=== PATIENT | female | born 1970 | race Caucasian/White ===

== ENCOUNTER 2017-08-15 19:05 | Emergency (ER) | payer OTHER ==
[2017-08-15 19:18] VITALS: RESP 20; TEMP 97.5; O2SAT 99
[2017-08-15] MEDS ORDERED: CYCLOBENZAPRINE 10 MG TAB PO ONE (21:13)
[2017-08-15] MEDS ORDERED: CYCLOBENZAPRINE 10 MG TAB ONE (21:15)
[2017-08-15 21:37] VITALS: BP 135/84; PULSE 84
== END 2017-08-15 21:20 | disposition home or self-care (01) | DRG 552 ==
LOC: ED 19:05
DX: S33.5XXA Sprain of ligaments of lumbar spine, initial encounter (principal); S13.4XXA Sprain of ligaments of cervical spine, initial encounter
CPT/HCPCS: 72040; 72120; 73030; 99282; 99283; A9270-GY

== ENCOUNTER 2018-10-12 16:12 | Emergency (ER) | payer OTHER ==
[2018-10-12] MEDS ORDERED: ASPIRIN 325 MG TAB PO STA (16:32)
[2018-10-12] MEDS ORDERED: ASPIRIN 81 MG CHEWABLE CTB ONE (16:32)
[2018-10-12] MEDS ORDERED: NITROGLYCERIN 0.4 MG TAB SL PRN (16:32)
[2018-10-12 16:42] LABS: BASOPHILS % (AUTO) 2 % (0-3); EOSINOPHILS % (AUTO) 4 % (0-9); HEMATOCRIT 41 % (35-47); HEMOGLOBIN 12.7 gm/dl (12.0-15.5); LYMPHOCYTES % (AUTO) 28.7 % (10-50); MEAN CORPUSCULAR HEMOGLOBIN 25.4 pg (27.0-32.0); MEAN CORPUSCULAR HGB CONC 30.7 gm/dl (32.0-36.0); MEAN CORPUSCULAR VOLUME 83 fL (81-99); MONOCYTES % (AUTO) 5.9 % (0-12); NEUTROPHILS % (AUTO) 60.1 % (37-80)
[2018-10-12] MEDS ORDERED: LORAZEPAM 2 MG/ML SOL IV ONE (16:46)
[2018-10-12 16:49] VITALS: TEMP 97.8
[2018-10-12 16:51] LABS: INR 0.97 (0.86-1.12)
[2018-10-12] MEDS ORDERED: LORAZEPAM 2 MG/ML SOL ONE (16:54)
[2018-10-12 16:59] LABS: ALBUMIN 3.5 gm/dl (3.4-5.0); ALKALINE PHOSPHATASE 77 IU/L (46-116); ALT 28 IU/L (14-63); AST 22 IU/L (15-37); BILIRUBIN,TOTAL 0.2 mg/dl (0.2-1.0); BLOOD UREA NITROGEN 13 mg/dl (7-18); CALCIUM 9.3 mg/dl (8.5-10.1); CARBON DIOXIDE 26.5 mEq/L (21-32); CHLORIDE 99 mMol/L (98-107); CREATININE 0.88 mg/dl (0.60-1.00); GLUCOSE 346 mg/dl (74-106); POTASSIUM 4.3 mMol/L (3.5-5.1); SODIUM 137 mMol/L (136-145); TOTAL PROTEIN 7.4 gm/dl (6.4-8.2); TROP I < 0.017 ng/ml (0.000-0.056)
[2018-10-12] MEDS ORDERED: ONDANSETRON HCL 4 MG/2 ML SOL ONE (18:46)
[2018-10-12] MEDS ORDERED: ONDANSETRON HCL 4 MG/2 ML SOL IV ONE (18:46)
[2018-10-12 20:23] VITALS: RESP 16
[2018-10-12 20:24] VITALS: BP 133/77; PULSE 77; O2SAT 96
== END 2018-10-12 20:22 | disposition home or self-care (01) | DRG 313 ==
LOC: ED 16:12
DX: R07.9 Chest pain, unspecified (principal); F41.9 Anxiety disorder, unspecified
CPT/HCPCS: 36415; 71045; 80053; 84484; 85025; 85378; 85610; 93005; 99283; 99285; J2060; J2405; A9270-GY